=== PATIENT | female | born 1995 | race Caucasian/White ===

== ENCOUNTER 2020-12-19 21:12 | Emergency (ER) | payer SELFPAY ==
[~2020-12-19] VITALS: Ht 160 cm; Wt 59.0 kg
[2020-12-19 21:16] VITALS: BP 110/79
--- NOTE | 2020-12-19 21:17 | NUR ---
ANNA JOY TO CHAIR Todd
[2020-12-19 21:41] VITALS: BP 110/79
--- NOTE | 2020-12-19 21:42 | NUR ---
PATIENT [facility] [employer]. PATIENT EXAMINED BY . PATIENT MEDICALLY CLEARED AND RELEASED IN CUSTODY IN STABLE CONDITION. ORIGINAL PRE-BOOK FORM GIVEN TO OFFICER TRINI.
== END 2020-12-19 21:42 ==
LOC: MED 21:12
DX: E11.9 Type 2 diabetes mellitus without complications (principal); Z02.89 Encounter for other administrative examinations
CPT/HCPCS: 99283